=== PATIENT | male | born 1960 | race Caucasian/White ===

== ENCOUNTER 2020-10-14 02:57 | Inpatient (IN) ==
[2020-10-14 03:19] LABS: Basophils % 0.2 %; Eosinophils % 0.1 %; Hematocrit 31.4 % (37.5-50.1); Hemoglobin 10.1 g/dL (12.9-16.9); Immature Granulocytes % 0.7 % (0-4); Lymphocytes # 0.9 K/mcL (0.6-4.6); Lymphocytes % 5.2 %; Mean Corpuscular HGB Conc 32.2 g/dL (31.6-35.5); Mean Corpuscular Hemoglobin 32.3 pg (28.0-33.3); Mean Corpuscular Volume 100.3 fL (83.0-100.0); Mean Platelet Volume 10.4 fL (9.4-12.4); Monocytes # 1.3 K/mcL (0.0-1.3); Monocytes % 7.5 %; Platelet Count 192 K/mcL (140-400); Red Blood Count 3.13 M/mcL (4.19-5.50); Segmented Neutrophils % 86.3 %; White Blood Count 17.9 K/mcL (4.3-11.1)
[2020-10-14 03:26] LABS: Neutrophils # 15.5 K/mcL (1.6-8.9)
[2020-10-14 03:32] LABS: Troponin I < 0.03 ng/mL (< 0.04)
[2020-10-14 04:06] LABS: Alanine Aminotransferase 18 Units/L (7-52); Albumin 3.5 g/dL (3.5-5.7); Albumin/Globulin Ratio 1.1 (1.1-2.2); Alkaline Phosphatase 157 Units/L (34-104); Aspartate Amino Transferase 12 Units/L (13-39); Bilirubin,Direct 0.2 mg/dL (0.0-0.2); Bilirubin,Indirect 0.3 mg/dL (0.0-1.0); Bilirubin,Total 0.5 mg/dL (0.3-1.0); Blood Urea Nitrogen 11 mg/dL (8-23); Calcium 9.8 mg/dL (8.6-10.3); Carbon Dioxide 30 mEq/L (23-29); Chloride 92 mEq/L (98-107); Globulin 3.1 g/dL (2.4-3.5); Glucose 119 mg/dL (70-105); Magnesium 1.7 mg/dL (1.6-2.6); Osmolality,Calculated 277 (280-300); Potassium 3.8 mEq/L (3.5-5.1); Sodium 133 mEq/L (136-145); Total Protein 6.6 g/dL (6.4-8.9)
[2020-10-14] MEDS ORDERED: 0.9 % Sodium Chloride 1,000 ML IVC ONE (04:10)
[2020-10-14] MEDS ORDERED: 0.9 % Sodium Chloride 1,000 ML IVC SCH (04:15)
[2020-10-14 04:53] LABS: BUN/Creatinine Ratio 15 (6-26); eGFR For African Americans > 60 (> 60); eGFR For Non-African Americans > 60 (> 60)
[2020-10-14] MEDS ORDERED: Ondansetron ODT 4 MG TAB.RAPDIS SL PRN (05:53)
[2020-10-14] MEDS ORDERED: Melatonin 3 MG TABLET PO PRN (05:53)
[2020-10-14] MEDS ORDERED: Mag Hydrox/Al Hydrox/Simeth 30 ML UDC PO PRN (05:53)
[2020-10-14] MEDS ORDERED: Naloxone 0.4 MG/ML INJ IVP PRN (05:53)
[2020-10-14] MEDS ORDERED: MOM Conc 10 ML UD.LIQ PO PRN (05:53)
[2020-10-14] MEDS: 0.9 % Sodium Chloride 1,000 ML IVC SCH ×3 (06:30→20:30)
[2020-10-14] MEDS: *HR* OxyCODONE ER (12 HR) 10 MG TABLET PO SCH ×2 (06:50→18:36)
[2020-10-14] MEDS: *HR* OxyCODONE Immed Rel 5 MG TABLET PO SCH ×4 (08:39→20:30)
[2020-10-14] MEDS: levoFLOXacin 500 MG TABLET PO SCH (08:40)
[2020-10-14 16:15] LABS: Bilirubin,Urine Negative (Negative); Blood,Urine Negative (Negative); Clarity,Urine Clear (Clear); Glucose,Urine (UA) Normal (Normal); Ketones,Urine Negative (Negative); Leukocyte Esterase,Urine Negative (Negative); Nitrite,Urine Negative (Negative); PH,Urine 6.5 pH Units (5.0-8.0); Protein,Urine Negative (Neg-Trace); Specific Gravity,Urine 1.025 (1.010-1.025); Urobilinogen,Urine Normal (Normal)
[2020-10-14 16:44] LABS: Color,Urine Dark Yellow (Yellow)
[2020-10-15] MEDS ORDERED: Benzonatate 100 MG CAPSULE PO PRN (00:19)
[2020-10-15] MEDS: *HR* OxyCODONE Immed Rel 5 MG TABLET PO SCH ×6 (00:28→20:00)
[2020-10-15] MEDS: Levalbuterol Neb 1.25 MG/3 ML IH SCH ×4 (03:59→21:54)
[2020-10-15] MEDS: 0.9 % Sodium Chloride 1,000 ML IVC SCH (04:21)
[2020-10-15] MEDS: *HR* OxyCODONE ER (12 HR) 10 MG TABLET PO SCH ×2 (05:56→18:12)
[2020-10-15 06:58] LABS: Hematocrit 26.7 % (37.5-50.1); Hemoglobin 8.2 g/dL (12.9-16.9); Mean Corpuscular HGB Conc 30.7 g/dL (31.6-35.5); Mean Corpuscular Hemoglobin 32.3 pg (28.0-33.3); Mean Corpuscular Volume 105.1 fL (83.0-100.0); Mean Platelet Volume 10.3 fL (9.4-12.4); Platelet Count 151 K/mcL (140-400); Red Blood Count 2.54 M/mcL (4.19-5.50); Red Cell Distribution Width 15.1 % (11.5-14.5); White Blood Count 13.8 K/mcL (4.3-11.1)
[2020-10-15 07:31] LABS: BUN/Creatinine Ratio 11 (6-26); Blood Urea Nitrogen 6 mg/dL (8-23); Calcium 8.4 mg/dL (8.6-10.3); Carbon Dioxide 30 mEq/L (23-29); Chloride 98 mEq/L (98-107); Glucose 105 mg/dL (70-105); Osmolality,Calculated 278 (280-300); Potassium 3.9 mEq/L (3.5-5.1); Sodium 135 mEq/L (136-145); eGFR For African Americans > 60 (> 60); eGFR For Non-African Americans > 60 (> 60)
[2020-10-15] MEDS: levoFLOXacin 500 MG TABLET PO SCH (08:35)
[2020-10-15] MEDS ORDERED: Megestrol Acetate 400 MG/10 ML UDC PO SCH (09:00)
[2020-10-15 23:43] VITALS: RESP 16
[2020-10-16] MEDS: *HR* OxyCODONE Immed Rel 5 MG TABLET PO SCH ×2 (02:50→05:09)
[2020-10-16] MEDS ORDERED: 0.9 % Sodium Chloride 1,000 ML IVC ONE (04:07)
[2020-10-16] MEDS: Levalbuterol Neb 1.25 MG/3 ML IH SCH (04:16)
[2020-10-16 05:58] VITALS: O2SAT 97
[2020-10-16] MEDS: *HR* OxyCODONE ER (12 HR) 10 MG TABLET PO SCH (06:06)
[2020-10-16 06:09] VITALS: BP 88/53; PULSE 114; TEMP 98.5
== END 2020-10-16 07:40 | disposition short-term general hospital (02) | DRG 193 ==
LOC: EMEROOPIK 02:57 → INPPIK 02:57
PROVIDERS: ADMIT Family Medicine; ATTEND Family Medicine